=== PATIENT | male | born 1990 | race African-American/Black ===

== ENCOUNTER 2023-10-05 04:24 | Emergency (ER) | payer SELFPAY ==
[~2023-10-05] VITALS: Ht 193 cm; Wt 84.0 kg
[2023-10-05 04:35] VITALS: BP 140/86; PULSE 103; RESP 12; TEMP 98.5; O2SAT 100
[2023-10-05] MEDS: PENICILLIN G BENZATHINE 2,400,000 UNITS/4ML SYR IM ONE (05:07)
== END 2023-10-05 05:21 | disposition home or self-care (01) ==
LOC: ER 04:24
DX: A53.9 Syphilis, unspecified (principal)
CPT/HCPCS: 99283; 86592; 96372; J0561